=== PATIENT | female | born 1965 | race Caucasian/White ===

== ENCOUNTER 2019-12-15 21:47 | Emergency (ER) | payer BC, SELFPAY ==
[2019-12-15 21:48] VITALS: BP 149/86; PULSE 115; RESP 18; TEMP 36.7; O2SAT 97; BMI 33.3
--- NOTE | 2019-12-15 22:35 | CT_ITS ---
STUDY: CT BRAIN WITHOUT CONTRAST REASON FOR EXAM: Female, 54 years old. PEREIRA, DIZZINESS, LIGHTHEADED, WHOOSHING SOUND IN BRAIN, PSYDO-TUMOR BEHIND EYE RADIATION DOSAGE (If Supplied By Facility): CTDIvol = ( 44.99 ) mGy, DLP = ( 846.73 ) mGycm TECHNIQUE: Transaxial CT imaging of the brain was performed without administration of intravenous contrast material. Individualized dose optimization techniques were used for this CT. COMPARISON: No relevant priors. FINDINGS: Normal soft tissue structures. Normal calvarium. Normal size ventricles and extra-axial spaces for the patient''s age. Normal white matter tracts of the cerebral hemispheres. Normal basal ganglia and thalami. Normal brainstem. Normal cerebellum. There is no intracranial hemorrhage. There are no findings of an acute ischemic infarction. There is mucosal thickening of the inferior maxillary sinuses. The bony orbits appear normal. The left and right globes and intraocular and extraconal orbital contents appear normal. CT/Brain/Head without Contrast IMPRESSION: Mild mucosal thickening of the inferior maxillary sinuses. Electronically Signed: Fabio Dowell MD at 23:51 EST , Service support ,
--- NOTE | 2019-12-15 22:35 | EKG12_ITS ---
Test Reason : DIZZY Blood Pressure : / mmHG Vent. Rate : 102 BPM Atrial Rate : 102 BPM P-R Int : 136 ms QRS Dur : 090 ms QT Int : 346 ms P-R-T Axes : 045 031 005 degrees QTc Int : 450 ms Sinus tachycardia Otherwise normal ECG Confirmed by GRECIA GARG, TRAVIS ([id number]), bindery leadperson PETTY PRIDE ([id number]) on 12/20/2019 8:48:03 AM Referred By: KIRSTIN Confirmed By:ARACELI PAIGE MD
[2019-12-15 23:00] LABS: Absolute Lymphocyte Count 2.98 X10^3/uL (0.83-4.51); Absolute Neutrophil Count 5.4 X10^3/uL (2.0-7.7); Basophil# 0.03 X10^3/uL; Basophil% 0.3 % (0-1); Eosinophil# 0.21 X10^3/uL; Eosinophils% 2.3 % (0-5); Hematocrit 43.9 % (37-47); Hemoglobin 14.4 g/dL (12.0-15.0); Lymphocyte # 2.98 X10^3/ul (4.0); Lymphocyte % 32.4 % (19-41); Mean Corp Hgb Conc 32.8 g/dL (32-36); Mean Corpuscular Hgb 29.9 pg (27.0-32.0); Mean Corpuscular Volume 91.3 fL (81-99); Mean Platelet Vol. 9.6 fl (6.2-12.0); Monocyte% 6.5 % (0-10); NRBC Flagged by Analyzer 0 % (0-5); Neutrophil # 5.36 X10^3/uL (2.7-7.7); Neutrophil % 58.3 % (47-70); Platelet Count 228 K/mm3 (150-450); RBC Distribution Width SD 43.5 fl (35.1-43.9); Red Blood Count 4.81 M/mm3 (4.2-5.4); White Blood Count 9.2 K/mm3 (4.4-11.0)
[2019-12-15 23:13] LABS: Anion Gap 3 (5-15); BUN 14 mg/dL (7-18); Calcium,Total 8.9 mg/dL (8.5-10.1); Chloride 106 mmol/L (98-107); Creatinine, Serum 0.82 mg/dL (0.55-1.02); EST Glomerular Filtration Rate 76 mL/min (>60); Est Glom Filt Rate - Afr Amer 92 mL/min (>60); Estimated Creatinine Clearance 68.93 ml/min; Glucose 112 mg/dL (74-106); Potassium 4.3 mmol/L (3.5-5.1); Sodium Level 140 mmol/L (136-145)
[2019-12-15] MEDS: Meclizine HCl 25 MG Tablet PO (23:15)
--- NOTE | 2019-12-15 23:18 | ED.VIS.GEN ---
History of Present Illness Chief Complaint: Dizziness Informant: Patient Onset: Weeks - 2 Context: Gradual Onset Timing: Intermittent, Lasts - seconds-minutes Quality: see below Location: head bilat Maximum Severity: Moderate Worsened by: sometimes triggered by turning head, other times by standing Relieved by: remaining still and waiting Narrative: Patient states 3 weeks ago or so she developed redness and swelling around her right eye without any vision changes. She saw an outpatient physical therapist assistant, had an MRI, and was diagnosed with orbital pseudotumor and states that the MRI which was performed at an outside institution, showed a mass posterior to the eye in the orbit. She states the plan was to obtain a biopsy. Soon thereafter she developed bronchitis and saw her PCP prescribed prednisone taper and antibiotics. Given that, her biopsy had to be postponed. She states around the time she started the steroids and antibiotic which was about 2 weeks ago, she started developing the symptoms that she presents with here today. She states that every day, she has had multiple episodes of discomfort in her head bilaterally along with dizziness that is difficult to explain; she has had headaches for a year or so, states that she gets those in the background but they are unrelated temporally with of the symptoms. She states it feels like something is reaching up in who her bitemporal areas and squeezing her brain. She states she feels dizzy and describes it like lightheadedness. She denies any spinning, but when asked if she has a sensation of movement, she states that sometimes she does and she does feel like she is going to fall but assumes that it is because she feels lightheaded like she is going to pass out at times. She states at times this has occurred totally randomly while she is sitting watching her computer screen at work, and at other times it is triggered by standing or turning her head. She has had nausea associated with the symptoms but not every time. She states it did not start until she started the prednisone and antibiotic, but as she began tapering the prednisone the symptoms seem to become more severe when they would occur. She called her outpatient physical therapist assistant and her PCP and both advised her to come to the ER immediately today for the symptoms that have been present for 2 weeks or more. She specifically states that the headaches in the background have not necessarily been worse with these episodes. Additionally, after taking the antibiotics and prednisone, the right eye symptoms are completely gone. - Past Medical History (1) Asthma Status: Chronic (2) HLD (hyperlipidemia) Status: Chronic (3) HTN (hypertension) Status: Chronic Past Medical History - Allergies and Home Meds Allergies/Adverse Reactions: Allergies acetaminophen [From Percocet] Allergy (Verified 12/15/19 21:51) Itching hydrocodone Allergy (Verified 12/15/19 21:51) Itching Macrolide Antibiotics Allergy (Verified 12/15/19 21:51) Unknown naproxen [From Naprosyn] Allergy (Verified 12/15/19 21:51) Hives oxycodone HCl [From Percocet] Allergy (Verified 12/15/19 21:51) Itching Penicillins Allergy (Verified 12/15/19 21:51) Swelling phenylephrine Allergy (Verified 12/15/19 21:51) Other salmeterol Allergy (Verified 12/15/19 21:51) Unknown Thiazides Allergy (Verified 12/15/19 21:51) Rash Primary Care Physician: Kirill Castillo MD [Primary Care Provider] - Surgical History: hysterectomy Smoking Status: Never smoker Review of Systems General: Denies: Chills, Fever, Sweats Eyes: Denies: Visual changes - bilaterally, Diplopia ENT: Denies: Bilateral ear pain, Rhinorrhea, Sore throat Cardiovascular: Denies: Chest pain, Palpitations Respiratory: Denies: Dyspnea, Cough, Dyspnea on exertion Gastrointestinal: Reports: Nausea. Denies: Abdominal pain, Vomiting, Diarrhea, Melena, Hematochezia Genitourinary: Denies: Dysuria, Hematuria, Frequency Musculoskeletal: Denies: Neck pain, Back pain, Swelling, Extremity Pain Skin: Denies: Rash, Wounds Neurological: Reports: Headache. Denies: Weakness, Numbness Physical Exam Vital Signs/Narrative: Vital Signs Temp Pulse Resp BP Pulse Ox 12/15/19 21:48 98.0 F 115 H 18 149/86 H 97 Inital Vital Signs reviewed: Yes General: Well nourished, Well developed, No Acute Distress Head: Normocephalic, Atraumatic Eyes: Perrl, EOMI, - - no abn nystagmus ENT: Moist mucous membranes, No rhinorrhea, TM's clear. Negative for: Sinus tenderness Neck: Supple, Nontender, No lymphadenopathy, - - no carotid bruits Cardiovascular: Regular rate, Regular rhythm, No murmurs, Tachycardia - mild Respiratory: No distress, CTA bilaterally, Chest nontender Abdomen: Soft, Nontender, Nondistended, Normal bowel sounds Back: Nontender, Normal Inspection Extremities: Nontender, No edema Skin: Normal color, No rash Neurological: Alert, Oriented x3, Cranial nerves II-XII grossly intact, Normal Strength, Normal Sensation, Normal DTR, Normal Gait, - - nml FTN and HTS bilat. NIHSS 0. [place] Hallpike reproduces sx only to right. Psychological: Normal affect, Normal Mood Diagnostic/Tx/Re-eval Impressions Brain CT 12/15/19 22:35 IMPRESSION: Mild mucosal thickening of the inferior maxillary sinuses. Electronically Signed: Fabio Dowell MD at 23:51 EST , Service support , 12/15/19 22:35 Brain/Head without Contrast [CT] Stat Laboratory Results 12/15/19 12/15/19 22:47 22:47 WBC 9.2 RBC 4.81 Hgb 14.4 Hct 43.9 MCV 91.3 MCH 29.9 MCHC 32.8 RDW Std Deviation 43.5 RDW Coeff of Rebecca 13.0 Plt Count 228 MPV 9.6 Immature Gran % (Auto) 0.200 Neut % (Auto) 58.3 Lymph % (Auto) 32.4 [place] % (Auto) 6.5 Eos % (Auto) 2.3 Baso % (Auto) 0.3 Absolute Neuts (auto) 5.4 Absolute Lymphs (auto) 2.98 Nucleated RBC % 0 Sodium 140 Potassium 4.3 Chloride 106 Carbon Dioxide 31.0 Anion Gap 3 L BUN 14 Creatinine 0.82 Estim Creat Clear Calc 68.93 Est GFR (MDRD) Af Amer 92 Est GFR (MDRD) Non-Af 76 BUN/Creatinine Ratio 17.0 Glucose 112 H Calcium 8.9 - Rhythm Strip Rhythm Strip: Sinus Tach Rate: 102 Ectopy: None - EKG Initial EKG Interpretation: No Acute Injury Pattern - normal other than mild tachycardia, Sinus Tachycardia Prior: No Prior - Medical Decision Making After meclizine which was given empirically for the possibility of this being intermittent vertigo, she states she still having the episodes, they may be a little less severe, she is having a hard time noticing a big difference. She is well-appearing on each evaluation. When she had an episode during my initial evaluation/exam, it was relatively brief, and then I was able to reproduce it with a [place]Hallpike to the right only, but not to the left, indicating the possibility of vertigo. Her CT is unremarkable except for minor mucosal thickening in the inferior maxillary sinuses which I do not think is causing this. Orthostatics and labs were unremarkable. I do not think she has an emergency medical condition and is safe to follow-up as an outpatient with her PCP and her outpatient physical therapist assistant; I do not think any of this is central in origin or stroke. Certainly it is possible these were side effects from the prednisone, which she just finished yesterday. Hopefully her symptoms will gradually resolve. She is comfortable with discharge home and all questions were answered at the bedside. ED Disposition - Plan for ED Patient: Disposition: Home or Assisted Living Diagnosis: Dizziness of unknown cause Instructions: VERTIGO, Unspecified, DIZZINESS, Unk Cause Referrals: Kirill Castillo MD [Primary Care Provider] - 1 Week if not improving Additional Instructions: May try meclizine 25 mg every 8 hours as needed for dizziness to see if that continues to help. Drink plenty fluids and stay well-hydrated.
[2019-12-15 23:19] VITALS: BP 131/93; BP 133/85; BP 140/113; PULSE 103; PULSE 105; PULSE 109
[2019-12-16 00:12] VITALS: BP 140/83; PULSE 100; RESP 16; O2SAT 98
[2019-12-16 00:30] VITALS: BP 135/87; PULSE 95; RESP 16; O2SAT 98
== END 2019-12-16 00:38 | disposition home or self-care (01) ==
PROVIDERS: Emergency Provider Emergency Medicine; PCP Family Medicine
DX: R42 Dizziness and giddiness (principal); I10 Essential (primary) hypertension; Z79.899 Other long term (current) drug therapy; J45.909 Unspecified asthma, uncomplicated; E78.5 Hyperlipidemia, unspecified
CPT/HCPCS: 70450; 80048; 85025; 93005; 99283; A4216

== ENCOUNTER 2020-04-24 10:32 | Emergency (ER) | payer BC, SELFPAY ==
[2020-04-24 10:34] VITALS: BP 149/99; PULSE 112; RESP 17; TEMP 36.2; O2SAT 97; BMI 33.3
--- NOTE | 2020-04-24 10:55 | ED.DCSUM_ITS ---
History of Present Illness Chief Complaint: Diarrhea Narrative: Patient presenting for evaluation secondary to diarrhea. Patient reports that she has been dealing with complications from trigeminal neuralgia recently. She has been on multiple different medications. Patient states that she has been dealing with GI issues over the course of the last couple of months, but it really seems like it is gotten worse within the last week. Patient reports that she will get severe abdominal cramping, and then has fecal urgency. Patient states that she basically gets loose mucousy diarrhea every time she eats anything. It is somewhat improved by taking [id number] antidiarrheal medications. Patient reports about a 15 pound weight loss over the course of the last 6 weeks that was unintended due to the fact that she really does not eat anything because she is nervous about having diarrhea. She denies any rec ent antibiotic exposures. Patient denies any recent hospital admissions or being in and around nursing homes. No exotic travel, but she and her do camp. She also drinks well water. Nobody in the family has any similar symptoms. She denies any nausea or vomiting. She does report that in the last day or so she has had some low-grade fevers as high as 100.4 with chills. Review of systems otherwise negative. Patient states that her diarrhea has been mucousy with small flecks of blood in it in the last couple of days. Past Medical History - Allergies and Home Meds Allergies/Adverse Reactions: Allergies acetaminophen [From Percocet] Allergy (Verified 04/24/20 10:33) Itching hydrocodone Allergy (Verified 04/24/20 10:33) Itching Macrolide Antibiotics Allergy (Verified 04/24/20 10:33) Unknown naproxen [From Naprosyn] Allergy (Verified 04/24/20 10:33) Hives oxycodone HCl [From Percocet] Allergy (Verified 04/24/20 10:33) Itching Penicillins Allergy (Verified 04/24/20 10:33) Swelling phenylephrine Allergy (Verified 04/24/20 10:33) Other salmeterol Allergy (Verified 04/24/20 10:33) Unknown Thiazides Allergy (Verified 04/24/20 10:33) Rash Primary Care Physician: Kirill Castillo MD [Primary Care Provider] - Prior records reviewed: Yes Past Medical History: - - Trigeminal neuralgia Surgical History: hysterectomy Smoking Status: Smoker, status unknown Review of Systems All systems negative except as indicated General: Reports: Chills, Fever, Weight loss Eyes: Denies: Visual changes - bilaterally, Diplopia ENT: Denies: Rhinorrhea, Sore throat Cardiovascular: Denies: Chest pain, Palpitations Respiratory: Denies: Dyspnea, Cough, Dyspnea on exertion Gastrointestinal: Reports: Abdominal pain, Diarrhea Genitourinary: Denies: Dysuria, Hematuria, Frequency Musculoskeletal: Denies: Back pain, Extremity Pain Skin: Denies: Rash, Wounds Neurological: Denies: Headache, Weakness, Numbness Physical Exam Vital Signs/Narrative: Vital Signs Temp Pulse Resp BP Pulse Ox 04/24/20 10:34 97.2 F L 112 H 17 149/99 H 97 Inital Vital Signs reviewed: Yes General: Well nourished, Well developed, Obese Head: Normocephalic, Atraumatic Eyes: Perrl, EOMI ENT: Moist mucous membranes, No rhinorrhea Neck: Supple, Nontender Cardiovascular: Regular rate, Regular rhythm, No murmurs Respiratory: No distress, CTA bilaterally, Chest nontender Abdomen: Soft, Nontender, Nondistended, Normal bowel sounds Back: Nontender, Normal Inspection Extremities: Nontender, No edema Skin: Normal color, No rash Neurological: Alert, Oriented x3, Cranial nerves II-XII grossly intact, Normal Strength, Normal Sensation Psychological: Normal affect, Normal Mood Diagnostic/Tx/Re-eval Laboratory Data 04/24/20 04/24/20 11:00 11:00 WBC 9.0 RBC 4.68 Hgb 13.9 Hct 43.7 MCV 93.4 MCH 29.7 MCHC 31.8 L RDW Std Deviation 43.4 RDW Coeff of Rebecca 12.7 Plt Count 236 MPV 9.8 Immature Gran % (Auto) 0.600 Neut % (Auto) 63.8 Lymph % (Auto) 26.5 [place] % (Auto) 7.9 Eos % (Auto) 0.9 Baso % (Auto) 0.3 Absolute Neuts (auto) 5.7 Absolute Lymphs (auto) 2.37 Nucleated RBC % 0 Sodium 141 Potassium 3.7 Chloride 107 Carbon Dioxide 30.0 Anion Gap 4 L BUN 15 Creatinine 0.88 Estim Creat Clear Calc 64.23 Est GFR (MDRD) Af Amer 85 Est GFR (MDRD) Non-Af 70 BUN/Creatinine Ratio 16.9 Glucose 89 Calcium 8.5 Total Bilirubin 0.40 AST 17 ALT 14 Alkaline Phosphatase 71 Total Protein 7.4 Albumin 3.7 Globulin 3.7 Albumin/Globulin Ratio 1.0 - Medical Decision Making Patient presented secondary to diarrhea. She was mildly tachycardic, IV was tablets laboratory studies were obtained. Patient was given fluids. CBC and CMP found to be unremarkable. Stool studies were sent for ova and parasites, enteric pathogens, and C. difficile. Patient has an otherwise normal lab work- up, I do not feel that she requires admission or further work-up at this time. She was recommended to take [id number] medications for her diarrhea and to follow-up with primary care for her stool studies. Patient was discharged in stable condition. ED Disposition - Plan for ED Patient: Disposition: Home or Assisted Living Diagnosis: Diarrhea Instructions: ED Diarrhea Viral Referrals: Kirill Castillo MD [Primary Care Provider] - 3-5 Days
[2020-04-24] MEDS: 0.9% Normal Saline 1,000 ML 1000 ML IV (11:02)
[2020-04-24 11:07] LABS: Absolute Lymphocyte Count 2.37 X10^3/uL (0.83-4.51); Absolute Neutrophil Count 5.7 X10^3/uL (2.0-7.7); Basophil# 0.03 X10^3/uL; Basophil% 0.3 % (0-1); Eosinophil# 0.08 X10^3/uL; Eosinophils% 0.9 % (0-5); Hematocrit 43.7 % (37-47); Hemoglobin 13.9 g/dL (12.0-15.0); Lymphocyte # 2.37 X10^3/ul (4.0); Lymphocyte % 26.5 % (19-41); Mean Corp Hgb Conc 31.8 g/dL (32-36); Mean Corpuscular Hgb 29.7 pg (27.0-32.0); Mean Corpuscular Volume 93.4 fL (81-99); Mean Platelet Vol. 9.8 fl (6.2-12.0); Monocyte# 0.71 X10^3/uL; Monocyte% 7.9 % (0-10); NRBC Flagged by Analyzer 0 % (0-5); Neutrophil # 5.71 X10^3/uL (2.7-7.7); Neutrophil % 63.8 % (47-70); Platelet Count 236 K/mm3 (150-450); RBC Distribution Width CV 12.7 % (11.6-14.6); RBC Distribution Width SD 43.4 fl (35.1-43.9); Red Blood Count 4.68 M/mm3 (4.2-5.4)
[2020-04-24 11:29] LABS: AST(SGOT) 17 U/L (15-37); Alanine Aminotransfer ALT/SGPT 14 U/L (13-56); Albumin, Serum 3.7 g/dL (3.2-5.0); Alkaline Phosphatase 71 U/L (45-117); Anion Gap 4 (5-15); BUN 15 mg/dL (7-18); BUN/Creat Ratio 16.9 RATIO (10-20); Calcium,Total 8.5 mg/dL (8.5-10.1); Chloride 107 mmol/L (98-107); Creatinine, Serum 0.88 mg/dL (0.55-1.02); EST Glomerular Filtration Rate 70 mL/min (>60); Est Glom Filt Rate - Afr Amer 85 mL/min (>60); Estimated Creatinine Clearance 64.23 ml/min; Globulin 3.7 g/dL (2.2-4.2); Glucose 89 mg/dL (74-106); Potassium 3.7 mmol/L (3.5-5.1); Protein, Total 7.4 g/dL (6.4-8.2); Sodium Level 141 mmol/L (136-145)
[2020-04-24 12:52] VITALS: BP 124/67; PULSE 87; RESP 17; O2SAT 99
== END 2020-04-24 13:04 | disposition home or self-care (01) ==
PROVIDERS: Emergency Provider Emergency Medicine; PCP Family Medicine
DX: R19.7 Diarrhea, unspecified (principal); E66.9 Obesity, unspecified
CPT/HCPCS: 80053; 85025; 87177; 87209; 87493; 87506; 96360; 99283; J7030; A4216

== ENCOUNTER → 2021-08-13 08:13 | Outpatient (CLI) | payer BC, SELFPAY ==
--- NOTE | 2021-08-13 15:34 | PFTCOMP_ITS ---
COMPLETE PULMONARY FUNCTION TEST INTERPRETATION Brief HPI: Patient is a 56 year old female, currently under the care of Dr. Lucero, who presents to [facility] for complete pulmonary function tests secondary to diagnosis of Asthma. Respiratory therapist reports good effort and reproducible results. Interpretation: Forced expiration spirometry shows no large airways obstructive ventilatory defect with an FEV1 of 90% predicted. There is no significant bronchodilator response by strict ATS criteria. Spirograms are of good quality and plateau normally. The respiratory flow volume loop shows a normal pattern. Lung volumes by body plethysmography show a normal total lung capacity at 4.9 L, 98% predicted. All other lung volumes are within normal limits. Diffusion capacity by carbon monoxide is normal at 89% predicted. The airway resistance is normal. No previous pulmonary function tests were available for review. Impression: Normal pulmonary function testing
== END ==
PROVIDERS: PCP Family Medicine; Referring Provider Internal Medicine Critical Care Medicine; Visit Provider Internal Medicine Critical Care Medicine
DX: J45.909 Unspecified asthma, uncomplicated (principal)
CPT/HCPCS: 94060; 94726; 94729

== ENCOUNTER → 2022-07-01 | Outpatient (CLI) | payer BC, SELFPAY | END | disposition home or self-care (01) | LOC: SL 11:26 | PROVIDERS: PCP Family Medicine; Visit Provider Nurse Practitioner Acute Care | DX: Z00.00 Encounter for general adult medical examination without abnormal findings (principal) ==